=== PATIENT | male | born 1950 | race Caucasian/White ===

== ENCOUNTER 2016-10-22 04:09 | Emergency (ER) | payer MEDICARE, OTHER ==
[~2016-10-22] VITALS: Ht 167.6 cm; Wt 86.2 kg
[2016-10-22] MEDS ORDERED: METF500T4 PO (04:27)
[2016-10-22] MEDS ORDERED: TRAZ100T15 PO (04:27)
[2016-10-22] MEDS ORDERED: BP MED (04:27)
[2016-10-22] MEDS ORDERED: LISI2.5T PO (04:27)
[2016-10-22] MEDS ORDERED: MORPHINE SULFATE 4 MG/ML, 1ML ONE (04:59)
[2016-10-22] MEDS ORDERED: ONDANSETRON 2MG/ML, 2ML ONE (04:59)
[2016-10-22] MEDS ORDERED: ONDANSETRON 2MG/ML, 2ML IVPush ONE (05:00)
[2016-10-22] MEDS ORDERED: SODIUM CHLORIDE 0.9% 1,000ML IVBOLUS ONE (05:00)
[2016-10-22] MEDS: MORPHINE SULFATE 4 MG/ML, 1ML IVPush PRN ×2 (05:06→05:45)
[2016-10-22 05:08] VITALS: BP 153/79
[2016-10-22 06:01] LABS: ASPARTATE AMINO TRANSFERASE 11 U/L (15-37); BLOOD UREA NITROGEN 14 mg/dL (7-18)
[2016-10-22 06:09] LABS: IS PT STATUS REG ER OR PRE ER? YES
== END 2016-10-22 06:50 | disposition home or self-care (01) ==
LOC: ED 06:08
DX: M94.0 Chondrocostal junction syndrome [Tietze] (principal); R10.9 Unspecified abdominal pain; E11.65 Type 2 diabetes mellitus with hyperglycemia; I10 Essential (primary) hypertension; Z87.891 Personal history of nicotine dependence
CPT/HCPCS: 36415; 71020; 76700; 80053; 83690; 84484; 85025; 93005; 96361; 96374; 96375; 96376; 99285; J2405; J7030

== ENCOUNTER → 2016-12-25 | Outpatient (CLI) | payer MEDICARE ==
[~2016-12-25] MED LIST: BP MED; LISI2.5T PO; METF500T4 PO; TRAZ100T15 PO
[2016-12-25 12:16] LABS: ASPARTATE AMINO TRANSFERASE 16 U/L (15-37); BLOOD UREA NITROGEN 17 mg/dL (7-18)
== END | disposition home or self-care (01) ==
LOC: LAB 11:40
PROVIDERS: ATTEND Family Medicine
DX: E78.2 Mixed hyperlipidemia (principal); E11.29 Type 2 diabetes mellitus with other diabetic kidney complication
CPT/HCPCS: 36415; 80053; 80061; 82043; 83036

== ENCOUNTER 2018-06-07 11:39 | Emergency (ER) | payer MEDICARE ==
[~2018-06-07] VITALS: Ht 167.6 cm; Wt 76.2 kg
[~2018-06-07 11:39] MED LIST changes: +METF500T17 PO; -METF500T4 PO; +TRAZ-137 PO; -TRAZ100T15 PO
[2018-06-07 12:39] LABS: BASOPHILS # (AUTO) 0.04 x10^3/uL (0-0.1); BASOPHILS % (AUTO) 0 % (0-1); EOSINOPHILS # (AUTO) 0.49 x10^3/uL (0-0.4); EOSINOPHILS % (AUTO) 4 % (1-7); LYMPHOCYTES # (AUTO) 1.76 x10^3/uL (1-3.4); LYMPHOCYTES % (AUTO) 16 % (22-44); MD NO; MEAN CORPUSCULAR HEMOGLOBIN 26.1 pg (27.5-34.5); MEAN CORPUSCULAR VOLUME 78.9 fL (81-97); MEAN PLATELET VOLUME 8.2 fL (7.4-10.4); MONOCYTES # (AUTO) 0.95 x10^3/uL (0.2-0.8); MONOCYTES % (AUTO) 9 % (2-9); NEUTROPHILS # (AUTO) 8.01 x10^3/uL (1.8-6.8); NEUTROPHILS % (AUTO) 71 % (42-75); PLATELET COUNT 328 x10^3/uL (130-400); RED BLOOD COUNT 5.76 x10^6/uL (4.38-5.82); RED CELL DISTRIBUTION WIDTH 16.4 % (9.4-14.8)
[2018-06-07] MEDS ORDERED: LIRA0.6P INJ (12:48)
[2018-06-07 12:49] LABS: ALANINE AMINOTRANSFERASE 11 U/L (12-78); ALBUMIN 3.3 g/dL (3.4-5.0); ANION GAP 10 mmol/L (5-15); CALCIUM 8.1 mg/dL (8.5-10.1); CHLORIDE 105 mmol/L (98-107); CREATININE 2.02 mg/dL (0.7-1.3)
[2018-06-07] MEDS ORDERED: INSU100V8 SQ (12:49)
[2018-06-07 12:51] LABS: ALKALINE PHOSPHATASE 94 U/L (45-117); BILIRUBIN,TOTAL 0.6 mg/dL (0.2-1.0); TOTAL PROTEIN 6.7 g/dL (6.4-8.2)
[2018-06-07] MEDS ORDERED: ATOR-2 PO (13:00)
[2018-06-07] MEDS ORDERED: GLIP10TA13 PO (13:00)
[2018-06-07] MEDS ORDERED: AMLO10TA6 PO (13:00)
[2018-06-07] MEDS ORDERED: HYDR12.517 PO (13:01)
[2018-06-07] MEDS ORDERED: LISI2.5T PO (13:02)
[2018-06-07] MEDS ORDERED: TRAZ50TA66 PO (13:02)
[2018-06-07 13:14] LABS: MICROSCOPIC NOT IND
[2018-06-07 13:23] LABS: CULTURE INDICATED? NO
[2018-06-07 13:30] LABS: INTERNATIONAL NORMALIZED RATIO 1.05 (0.93-1.1); PROTHROMBIN TIME 11.1 Seconds (9.6-11.5)
[2018-06-07 13:38] LABS: TROPONIN I < 0.015 ng/mL (0.000-0.045)
[2018-06-07 13:53] VITALS: BP 111/71
== END 2018-06-07 13:55 | disposition home or self-care (01) ==
LOC: ED 13:45
DX: R53.1 Weakness (principal); N28.9 Disorder of kidney and ureter, unspecified; E11.65 Type 2 diabetes mellitus with hyperglycemia; I25.2 Old myocardial infarction; I10 Essential (primary) hypertension
CPT/HCPCS: 36415; 71045; 80053; 81003; 83605; 83880; 84484; 85025; 85610; 93005; 99284

== ENCOUNTER 2020-01-23 19:01 | Emergency (ER) | payer MEDICARE ==
[~2020-01-23] VITALS: Ht 170.2 cm; Wt 81.0 kg
[~2020-01-23 19:01] MED LIST changes: +AMLO10TA8 PO; +ATOR-2 PO; +GLIP10TA13 PO; +HYDR12.517 PO; +INSU100V8 SQ; +LIRA0.6P INJ; -TRAZ-137 PO; +TRAZ-175 PO; +TRAZ50TA66 PO
[2020-01-23] MEDS ORDERED: DULA0.75 SQ (19:23)
[2020-01-23] MEDS ORDERED: FLUT16SP24 NAS (19:23)
[2020-01-23] MEDS ORDERED: LISI40TA PO (19:23)
[2020-01-23] MEDS ORDERED: HYDR50TA99 PO (19:23)
[2020-01-23] MEDS ORDERED: HYDR25TA6 PO (19:23)
[2020-01-23] MEDS ORDERED: ASPIRIN 81 MG TABLET CHEW PO ONE (20:30)
[2020-01-23 20:54] LABS: BASOPHILS # (AUTO) 0.02 x10^3/uL (0-0.1); BASOPHILS % (AUTO) 0 % (0-1); EOSINOPHILS # (AUTO) 0.52 x10^3/uL (0-0.4); EOSINOPHILS % (AUTO) 5 % (1-7); LYMPHOCYTES # (AUTO) 2.15 x10^3/uL (1-3.4); LYMPHOCYTES % (AUTO) 19 % (22-44); MD NO; MEAN CORPUSCULAR HEMOGLOBIN 28.3 pg (27.5-34.5); MEAN CORPUSCULAR HGB CONC 33.2 g/dL (33.2-36.2); MEAN PLATELET VOLUME 7.6 fL (7.4-10.4); MONOCYTES # (AUTO) 0.68 x10^3/uL (0.2-0.8); MONOCYTES % (AUTO) 6 % (2-9); NEUTROPHILS # (AUTO) 7.87 x10^3/uL (1.8-6.8); NEUTROPHILS % (AUTO) 70 % (42-75); PLATELET COUNT 294 x10^3/uL (130-400); RED BLOOD COUNT 5.26 x10^6/uL (4.38-5.82); RED CELL DISTRIBUTION WIDTH 13.6 % (9.4-14.8)
--- NOTE | 2020-01-23 21:03 | NUR ---
ASA ORDER IN CHART. PT TOOK ASA 81MG AT HOME, WAS GIVEN ASA 163MG PER EMS. WILL CONSULT PROVIDER RE: ORDER.
[2020-01-23 21:05] LABS: ALANINE AMINOTRANSFERASE 21 U/L (12-78); ALBUMIN 3.5 g/dL (3.4-5.0); ANION GAP 6 mmol/L (5-15); CALCIUM 9.1 mg/dL (8.5-10.1); CHLORIDE 109 mmol/L (98-107); CREATININE 1.63 mg/dL (0.7-1.3)
[2020-01-23 21:10] LABS: ALKALINE PHOSPHATASE 96 U/L (45-117); BILIRUBIN,TOTAL 0.4 mg/dL (0.2-1.0); TOTAL PROTEIN 7.1 g/dL (6.4-8.2); TROPONIN I < 0.015 ng/mL (0.000-0.045)
--- NOTE | 2020-01-23 21:12 | NUR ---
PT STANDING IN ED ROOM, STATES HE WANTS TO LEAVE. INFORMED PT THAT PROVIDER IS WAITING FOR LAB RESULTS. PT WILLING TO WAIT, FOR NOW.
--- NOTE | 2020-01-23 21:35 | NUR ---
DR ALLISON AT BS
[2020-01-23 21:52] VITALS: BP 134/71
== END 2020-01-23 21:54 | disposition home or self-care (01) ==
LOC: ED 21:45
DX: R07.2 Precordial pain (principal); R00.0 Tachycardia, unspecified; I10 Essential (primary) hypertension; E11.9 Type 2 diabetes mellitus without complications; I25.2 Old myocardial infarction
CPT/HCPCS: 36415; 71045; 80053; 84484; 85025; 93005; 99285